=== PATIENT | female | born 1970 | race Caucasian/White ===

== ENCOUNTER 2016-04-29 05:05 | Day surgery (SDC) | payer OTHER ==
[~2016-04-29] VITALS: Ht 172.7 cm; Wt 116.7 kg
[2016-04-29] VITALS (11 sets, daily range): BP systolic 105–137; BP diastolic 47–87; PULSE 55–98; TEMP 97.2–98.5
[~2016-04-29 05:05] MED LIST: PREDNISONE10 MG PO; PROVENTIL0.09 MG/A1 IH
[2016-04-29 05:40] LABS: BASO # 0.1 (0.0-0.2); BASO % 0.6 % (0.0-2.0); EOS # 0.1 (0.0-0.7); EOS % 0.8 % (0-4.0); GRAN # 4.7 (1.4-6.5); HEMATOCRIT 40.8 % (37.0-47.0); HEMOGLOBIN 14.2 g/dl (12.5-16.0); LYMPH # 3.4 (1.2-3.4); LYMPH % 38.9 % (20.0-51.0); MEAN CELL VOLUME 88 fl (80.0-100.0); MEAN CORPUSCULAR HEMOGLOBIN 31 pg (27.0-31.0); MEAN CORPUSCULAR HGB CONC 35 g/dl (33.0-37.0); MEAN PLATELET VOLUME 8.9 fl (7.4-10.4); MONO # 0.5 (0.1-0.6); MONO % 5.5 % (1.7-9.3); PLATELET COUNT 321 K/mm3 (130-400); RED BLOOD COUNT 4.62 M/mm3 (4.10-5.30); REDCELL DISTRIBUTION WIDTH-CV 12.9 % (11.5-14.5); WHITE BLOOD COUNT 8.7 K/mm3 (4.8-10.8)
[2016-04-29 05:47] LABS: ADJUSTED CALCIUM 9.4 mg/dL (8.4-10.2); ALBUMIN 4.3 gm/dL (3.5-5.0); BILIRUBIN,TOTAL 0.7 mg/dL (0.0-1.0); CALCIUM 9.6 mg/dL (8.4-10.2); CREATININE, serum 0.73 mg/dL (0.52-1.25)
[2016-04-29 06:24] LABS: PH 6 (5-8); SQUAMOUS EPITHELIAL None Seen /hpf; URINE APPEARANCE Clear; URINE BACTERIA None Seen /hpf; URINE BILIRUBIN Negative (NEGATIVE); URINE BLOOD Negative (NEGATIVE); URINE COLOR Yellow; URINE GLUCOSE Negative (NEGATIVE); URINE KETONE Negative (NEGATIVE); URINE RBC 0-2 /hpf; URINE UROBILINOGEN Negative (NEGATIVE); URINE WBC 0-2 /hpf
[2016-04-29] MEDS ORDERED: FLONASE NASAL S16 GM NS (08:32)
[2016-04-29] MEDS ORDERED: ADVIL200 MG PO (08:33)
[2016-04-30 04:40] VITALS: BP 114/54; PULSE 76; TEMP 97.2
[2016-04-30] MEDS ORDERED: NORCO 325 MG-7.1 TAB PO (07:05)
[2016-04-30 09:37] VITALS: BP 125/47; PULSE 70; TEMP 98.1
== END 2016-04-30 13:28 | disposition home or self-care (01) ==
LOC: COL.ER 05:05 → SDCO 08:02 → SURG 08:02 → SDCO 04-30 13:28
PROVIDERS: Emergency Medicine
DX: K80.10 Calculus of gallbladder with chronic cholecystitis without obstruction (principal); J45.909 Unspecified asthma, uncomplicated; E66.9 Obesity, unspecified; Z87.891 Personal history of nicotine dependence
CPT/HCPCS: OP; J0696; J1100; J1170; J1885; J2250; J2405; J2550; J2704; J2710; J2765; J3010; J7030; J7120

== ENCOUNTER → 2018-01-21 | Outpatient (CLI) | payer OTHER ==
[~2018-01-21] MED LIST changes: +ADVIL200 MG PO; +FLONASE NASAL S16 GM NS; +NORCO 325 MG-7.1 TAB PO
== END ==
LOC: MC.RAD 10:57
DX: Z12.31 Encounter for screening mammogram for malignant neoplasm of breast (principal)